=== PATIENT | female | born 1955 | race Caucasian/White ===

== ENCOUNTER 2018-02-01 08:22 | Day surgery (SDC) | payer BC, OTHER ==
[~2018-02-01 08:22] MED LIST: DESFLURANE 15 MIN
[2018-02-01] MEDS ORDERED: ROPIVACAINE 0.5 % 30 ML VIAL (12:05)
[2018-02-01] MEDS ORDERED: MIDAZOLAM 1 MG/ML 2 ML INJ (12:05)
[2018-02-01] MEDS ORDERED: FENTAnyl 50 MCG/ML VIAL ×3 (12:05→15:53)
[2018-02-01] MEDS ORDERED: DEXAMETHASONE 4 MG/ML 1 ML INJ ×2 (12:07→13:21)
[2018-02-01] MEDS ORDERED: NEOMYC/POLYMYX/BACIT 3.5GM OPH OINT (12:39)
[2018-02-01] MEDS ORDERED: NEOMYC/POLYMYX/BACIT 30 GM OINT (12:40)
[2018-02-01] MEDS ORDERED: ROCURONIUM 50 MG INJ ×2 (12:42→14:29)
[2018-02-01] MEDS ORDERED: LIDOCAINE 1% (MDV) 20 ML INJ (12:42)
[2018-02-01] MEDS ORDERED: PROPOFOL 20 ML (12:42)
[2018-02-01] MEDS ORDERED: morphine 2 MG INJ IV (13:00)
[2018-02-01] MEDS ORDERED: CEFAZOLIN 1 GM INJ (13:21)
[2018-02-01] MEDS ORDERED: ONDANSETRON 4 MG INJ (13:21)
[2018-02-01] MEDS: POLYMYXIN/BACITRACIN 1L IRRIG IRR (16:42)
[2018-02-01] MEDS: BACITRACIN/POLYMYXIN 0.9 GM OINT TOP (16:42)
[2018-02-01] MEDS ORDERED: HYDROmorphONE 1 MG/5 ML IV SYRINGE IV ×2 (18:00)
[2018-02-01] MEDS ORDERED: OXYCODONE/ACETAMINOPHEN (5/325) TAB PO ×2 (18:00)
[2018-02-01] MEDS: ONDANSETRON 4 MG INJ IV (19:08)
== END 2018-02-01 19:58 | disposition home or self-care (01) ==
LOC: SDS 08:22
DX: T84.84XD Pain due to internal orthopedic prosthetic devices, implants and grafts, subsequent encounter (principal); Y79.1 Therapeutic (nonsurgical) and rehabilitative orthopedic devices associated with adverse incidents; M93.271 Osteochondritis dissecans, right ankle and joints of right foot; M65.871 Other synovitis and tenosynovitis, right ankle and foot; S82.141K Displaced bicondylar fracture of right tibia, subsequent encounter for closed fracture with nonunion; S82.141P Displaced bicondylar fracture of right tibia, subsequent encounter for closed fracture with malunion; X58.XXXD Exposure to other specified factors, subsequent encounter
CPT/HCPCS: 29891; 73610-RT; 82306; 88300